=== PATIENT | male | born 1960 | race African-American/Black ===

== ENCOUNTER 2018-08-02 12:15 | Emergency (ER) | END 2018-08-02 13:54 | disposition home or self-care (01) ==

== ENCOUNTER 2019-03-24 15:04 | Emergency (ER) | payer SELFPAY ==
[~2019-03-24] VITALS: Wt 112.0 kg
[~2019-03-24 15:04] MED LIST: AMOX1TAB10 PO; IBUP-1542 PO
[2019-03-24] MEDS ORDERED: CYCL10TA7 PO (18:54)
[2019-03-24] MEDS ORDERED: IBUP800T48 PO (18:54)
[2019-03-24] MEDS ORDERED: HYDR-4011 PO (18:54)
[2019-03-24 19:00] VITALS: BP 138/72; PULSE 76; RESP 16
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
== END 2019-03-24 19:00 | disposition home or self-care (01) ==
LOC: FTE 15:04
DX: S16.1XXA Strain of muscle, fascia and tendon at neck level, initial encounter (principal); S49.91XA Unspecified injury of right shoulder and upper arm, initial encounter; S39.92XA Unspecified injury of lower back, initial encounter; V49.49XA Driver injured in collision with other motor vehicles in traffic accident, initial encounter
CPT/HCPCS: 72040; 72100; 72125